=== PATIENT | male | born 1950 | race Caucasian/White ===

== ENCOUNTER 2016-06-03 12:24 | Emergency (ER) | payer BC ==
[~2016-06-03] VITALS: Ht 175.3 cm; Wt 81.5 kg
[2016-06-03 12:31] VITALS: Ht 175.3 cm; Wt 81.5 kg
[2016-06-03] MEDS ORDERED: CEPH-443 PO (16:30)
[2016-06-03] MEDS ORDERED: SULF1TAB31 PO (16:30)
[2016-06-03 16:38] VITALS: PULSE 70; RESP 16; TEMP 97.6
--- NOTE | 2016-06-03 16:43 | ERD ---
ER Documentation Chief Complaint Date/Time DATE: 06/03/16 TIME: 16:33 Chief Complaint new lump on head, painful & mildly red HPI This is a 66-year-old male presenting to emergency department for red and painful area to right side of scalp. Patient states he woke up this morning and noticed a painful area that was growing in size. Patient states he has pain when he presses on area. No recent head trauma or fall. No fevers or chills. Denies headache. No change in vision or loss of vision. No nausea or vomiting. Denies weakness or fatigue. No drainage. ROS All systems reviewed and are negative except as per history of present illness. 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 Neck: Full range of motion..~ No meningismus. Resp: Clear to auscultation bilaterally Cardio: Regular rate and rhythm, no murmurs Abd: Soft, non tender, non distended. Normal bowel sounds Skin: Small area of localized erythema and swelling to right scalp. no warmth or drainage. no fluctuance or induration. Back: No midline or flank tenderness Ext: No cyanosis, or edema Neur: Awake and alert Psych: Normal Mood and Affect Procedures/MDM MDM: 66 year old male presenting to emergency department for localized erythema , pain and swelling to right scalp. No drainage, fluctuance or induration. Remains afebrile. No recent head trauma. No neurological deficits. Patient's vital signs are stable. Patient states he first noticed painful swelling today. Has not been seen by another provider. Vital signs are stable. Patient remains calm and cooperative throughout ED visit. Diagnosis is early abscess versus cellulitis. Low suspicion for deep space infection or sepsis. Patient is appropriate for outpatient management will be given prescription for Bactrim and Keflex. Instructed patient to return in 2 days for wound check. Return to ED for any high fever, chest pain, difficulty breathing, shortness breath, wheezing, vomiting, diarrhea, abdominal pain or any new or worsening symptoms. Patient verbalizes understanding. All questions answered at discharge. Departure Diagnosis: Primary Impression: Abscess Condition: Stable Patient Instructions: Abscess, Antiobiotic Treatment Only Referrals: YASMANY FARIAS (PCP) Additional Instructions: Return to this facility in 2 DAYS for a follow-up exam.Return sooner if your condition worsens. Return to ED for any high fever, chest pain, difficulty breathing, shortness breath, wheezing, vomiting, diarrhea, abdominal pain or any new or worsening symptoms. CLEO EASTMAN NP Jun 03, 2016 16:43
== END 2016-06-03 16:39 | disposition home or self-care (01) ==
LOC: FTE 12:24
DX: L02.811 Cutaneous abscess of head [any part, except face] (principal); I10 Essential (primary) hypertension
CPT/HCPCS: 99284

== ENCOUNTER 2016-06-05 21:00 | Emergency (ER) | payer BC ==
[~2016-06-05] VITALS: Ht 175.3 cm; Wt 81.8 kg
[~2016-06-05 21:00] MED LIST: CEPH-443 PO; SULF1TAB31 PO
[2016-06-05 21:11] VITALS: Ht 175.3 cm; Wt 81.8 kg
--- NOTE | 2016-06-05 21:27 | ERD ---
ER Documentation Chief Complaint Date/Time DATE: 06/05/16 TIME: 21:25 Chief Complaint here for head wound recheck on head, no notable redness/deformity HPI This is a 66-year-old male presenting to the emergency department for a wound check of an abscess that was occurred on his right parietal scalp, patient states that he was seen here 2 days ago and given antibiotics. Patient states that it has improved greatly. He denies any fever. He denies any pain, he states 0 out of 10. Patient states that he is following up with his primary care physician on Monday ROS All systems reviewed and are negative except as per history of present illness. 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 Neck: Full range of motion..~ No meningismus. Resp: Clear to auscultation bilaterally Cardio: Regular rate and rhythm, no murmurs Abd: Soft, non tender, non distended. Normal bowel sounds Skin: Mild erythema on the right parietal scalp, no drainage or induration or warmth felt Back: No midline or flank tenderness Ext: No cyanosis, or edema Neur: Awake and alert Psych: Normal Mood and Affect Procedures/MDM This is a 66-year-old male presenting to the emergency department for a wound check of an abscess that he was given antibiotics for 2 days ago. Patient states that it has improved significantly. I have discussed with him to continue the antibiotics and follow-up with his primary care physician on Monday. Discussed return to the ER for any worsening sinus symptoms. He understands and agrees with this plan Departure Diagnosis: Primary Impression: Wound check, abscess Condition: Stable Patient Instructions: Wound Care Additional Instructions: Continue antibiotics Follow-up with your primary care physician Return to this facility if you are not improving as expected. MU ROBERTS PA-C Jun 05, 2016 21:27
== END 2016-06-05 21:48 | disposition home or self-care (01) ==
LOC: FTE 21:00
DX: Z48.00 Encounter for change or removal of nonsurgical wound dressing (principal); I10 Essential (primary) hypertension
CPT/HCPCS: 99281

== ENCOUNTER 2016-11-21 14:54 | Emergency (ER) | payer BC ==
[~2016-11-21] VITALS: Ht 172.7 cm; Wt 82.7 kg
[2016-11-21 14:56] VITALS: Ht 172.7 cm; Wt 82.7 kg
[2016-11-21] MEDS ORDERED: LIDOCAINE 1% (MDV) 10 ML INJ INJ STA (17:27)
[2016-11-21] MEDS ORDERED: DIPHTH/TET/ACEL PERTUSS (ADULT) 0.5 ML VIAL IM ONE (17:30)
--- NOTE | 2016-11-21 17:34 | ERD ---
ER Documentation Chief Complaint Date/Time DATE: 11/21/16 TIME: 17:29 Chief Complaint toe laceration HPI 56-year-old male presents emergency department with a laceration between the right second and third toe that occurred on his roof this morning about 10 AM due to a shingle. Patient was wearing sandals at the time and the shingle went between the second and third toe causing a laceration. He has localized pain as sharp, no history of foreign body penetration. Patient states that his last tetanus shot was many years ago. ROS All systems reviewed and are negative except as per history of present illness. 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 The patient appears in no acute distress. HEENT: Head is normocephalic, atraumatic. No scleral icterus. Neck: Supple. Nontender. Lungs: Clear to auscultation. Normal air movement. Heart: Regular rate and rhythm. S1 and S2 are normal. No murmurs, gallops, or rubs. Abdomen: Nondistended. Extremities: No clubbing or cyanosis. Moving extremities x 4. No weakness. Neurologic: Alert and oriented 3. No focal deficits. Normal speech and gait. Skin: 3 cm linear laceration between the right second and third toe web space. Is superficial, no active bleeding, no foreign bodies. She is able flex and extend all toes.. Results 24 hrs Current Medications Medications (Trade) Dose Ordered Sig/Kasie Route PRN Reason Start Time Stop Time Status Last Admin Dose Admin Diphtheria/ Tetanus/Acell Pertussis (Adacel) 0.5 ml ONCE ONCE IM 11/21/16 17:30 11/21/16 17:31 DC 11/21/16 18:02 Lidocaine HCl (Lidocaine 1% (Mdv) 10 ml) 10 ml ONCE STAT INJ 11/21/16 17:27 11/21/16 17:29 DC Procedures/MDM Laceration Repair by me: He was verbally consented Anesthesia: 1% lidocaine locally Location: Webspace between the right second and third toe Tendon/Joint/Nerves: No injury Foreign body: None detected after copious irrigation and exploration Technique: Simple Interrupted Sutures 6 using 5-0 Ethilon Complexity: No subcutaneous sutures/mucosal repair/ edge excision Post Closure Length: 3 cm Patient's bleeding was easily controlled in the department and there is no indication of anemia. No evidence of compartment syndrome, neurologic injury, vascular injury, open joint, tendon laceration, or foreign body. Patient is appropriate for outpatient follow up. 48 hour wound check. Scar minimization instructions given. Departure Diagnosis: Primary Impression: Laceration Condition: NATHAN Ly PA-C Nov 21, 2016 17:34
[2016-11-21] MEDS ORDERED: IBUP-1542 PO (17:36)
== END 2016-11-21 18:28 | disposition home or self-care (01) ==
LOC: FTE 14:54
DX: S91.311A Laceration without foreign body, right foot, initial encounter (principal); I10 Essential (primary) hypertension; X58.XXXA Exposure to other specified factors, initial encounter; Y92.9 Unspecified place or not applicable
CPT/HCPCS: 12002; 90471; 90715; Z7502; Z7610